=== PATIENT | female | born 1990 | race Caucasian/White ===

== ENCOUNTER 2021-05-16 19:14 | Emergency (ER) | payer OTHER ==
[~2021-05-16] VITALS: Ht 167.6 cm; Wt 96.0 kg
[2021-05-16 19:32] VITALS: BP 142/97
[2021-05-16] MEDS ORDERED: SULF1TAB48 MT (21:00)
[2021-05-16] MEDS ORDERED: CEPH250C2 MT (21:00)
[2021-05-16] MEDS ORDERED: CEPHALEXIN 250MG CAPSULE PO ONE (21:15)
[2021-05-16] MEDS ORDERED: IBUPROFEN 800MG TABLET PO ONE (21:15)
[2021-05-16] MEDS ORDERED: SULFAMETHOXAZOLE/TRIMETHOPRIM 800/160MG TABLET PO ONE (21:15)
== END 2021-05-16 21:50 | disposition home or self-care (01) ==
LOC: ER 19:47
DX: N76.0 Acute vaginitis (principal); L03.311 Cellulitis of abdominal wall; Z79.899 Other long term (current) drug therapy; Z98.890 Other specified postprocedural states
CPT/HCPCS: 81025; 99282; 99283

== ENCOUNTER 2022-02-19 16:24 | Observation (INO) | payer OTHER ==
[~2022-02-19] VITALS: Ht 167.6 cm; Wt 117.9 kg
[~2022-02-19 16:24] MED LIST: CEPH250C2 MT; SULF1TAB48 MT
[2022-02-19] MEDS ORDERED: OMEG-31 MT (18:34)
[2022-02-19] MEDS ORDERED: FOLI0.4T6 MT (18:34)
[2022-02-19] MEDS ORDERED: PREN1TAB78 MT (18:34)
[2022-02-19] MEDS ORDERED: FERR325T6 MT (18:34)
== END 2022-02-19 18:50 | disposition home or self-care (01) ==
LOC: 8 EST LDRP 16:24
PROVIDERS: ADMIT Obstetrics & Gynecology; ATTEND Obstetrics & Gynecology
DX: O26.853 Spotting complicating pregnancy, third trimester (principal); Z3A.36 36 weeks gestation of pregnancy
CPT/HCPCS: 76805; 76818; 99281; G0378; 59025

== ENCOUNTER 2022-03-11 08:30 | Inpatient (IN) | payer OTHER ==
[~2022-03-11] VITALS: Ht 167.6 cm; Wt 117.9 kg
[~2022-03-11 08:30] MED LIST changes: +FERR325T6 MT; +FOLI0.4T6 MT; +OMEG-31 MT; +PREN1TAB78 MT
[2022-03-11] MEDS ORDERED: DEXT 5%/LR + PITOCIN 20UNITS/L 1,000 ML IV SCH ×2 (09:30→17:00)
[2022-03-11] MEDS ORDERED: METHYLERGONOVINE MALEATE 0.2 MG/ML IM PRN (09:30)
[2022-03-11] MEDS: LACTATED RINGERS 1,000 ML IV SCH (09:45)
[2022-03-11 10:13] LABS: BASOPHILS % 0.2 % (0.0-2.0); EOSINOPHILS % 3.1 % (0.0-5.0); HEMATOCRIT. 38.1 % (36.0-48.0); HEMOGLOBIN. 13.4 g/dL (12.0-16.0); LYMPHOCYTES % 23.4 % (20.0-50.0); MEAN CORPUSCULAR HEMOGLOBIN 33.1 pg (28.0-32.0); MEAN CORPUSCULAR VOLUME 94.2 fL (81.0-99.0); MONOCYTES % 7.9 % (2.0-8.0); NEUTROPHILS % 65.4 % (40.0-76.0); PLATELET 186 x1000/uL (130-400); RED BLOOD CELL COUNT 4.04 mill/uL (4.2-5.4); RED CELL DISTRIBUTION WIDTH 13.7 % (11.6-14.6)
[2022-03-11 10:15] LABS: CLARITY URINE CLOUDY (CLEAR); COLOR URINE YELLOW (YELLOW); KETONES URINE NEGATIVE (NEGATIVE); LEUKOCYTE ESTERASE URINE 1+ (NEGATIVE); NITRITE URINE NEGATIVE (NEGATIVE); OCCULT BLOOD URINE NEGATIVE (NEGATIVE); PH URINE 7.5 (4.5-8.0); PROTEIN URINE TRACE (NEGATIVE); SPECIFIC GRAVITY URINE 1.017 (1.005-1.030); UROBILINOGEN URINE 0.2 E.U./dL (0.2-1.0)
[2022-03-11] MEDS ORDERED: CITRIC ACID/SODIUM CITRATE SOLN 30ML UDC PO SCH (10:15)
[2022-03-11 10:26] LABS: PARTIAL THROMBOPLASTIN TIME 29.5 sec (23.4-31.0); PROTHROMBIN TIME 10.3 sec (9.6-11.0)
[2022-03-11] MEDS ORDERED: CEFAZOLIN SODIUM 1000MG/VIAL ONE (10:30)
[2022-03-11] MEDS ORDERED: EPHEDRINE SULFATE 50MG/ML VIAL ONE (10:30)
[2022-03-11] MEDS ORDERED: OXYTOCIN 10 UNITS/ML 1ML ONE (10:31)
[2022-03-11] MEDS ORDERED: ONDANSETRON HCL 4MG/2ML INJ ONE (10:31)
[2022-03-11] MEDS ORDERED: DIPHENHYDRAMINE 50MG/ML VIAL ONE (10:31)
[2022-03-11] MEDS ORDERED: FENTANYL CITRATE/PF 50MCG/ML 2ML VIAL ONE (10:31)
[2022-03-11] MEDS ORDERED: MORPHINE SULFATE/PF 1MG/ML 10ML AMP ONE (10:32)
[2022-03-11 10:33] LABS: *AMPHETAMINES SCREEN URINE NEGATIVE (NEGATIVE); *BARBITURATES SCREEN URINE NEGATIVE (NEGATIVE); *BENZODIAZEPINES SCREEN URINE NEGATIVE (NEGATIVE); *COCAINE SCREEN URINE NEGATIVE (NEGATIVE); CANNABINOID URINE SCREEN NEGATIVE (NEGATIVE); METHADONE URINE SCREEN NEGATIVE (NEGATIVE); OPIATES URINE SCREEN NEGATIVE (NEGATIVE); PHENCYCLIDINE URINE SCREEN NEGATIVE (NEGATIVE)
[2022-03-11 12:24] LABS: HEPATITIS B SURFACE ANTIGEN NEGATIVE
[2022-03-11] MEDS ORDERED: CITRIC ACID/SODIUM CITRATE SOLN 30ML UDC PO NR (12:45)
[2022-03-11] MEDS ORDERED: KETOROLAC 60MG/2ML VIAL IM ONE (14:44)
[2022-03-11] MEDS ORDERED: NALOXONE HCL 0.4 MG/ML 1ML VIAL IV PRN (15:00)
[2022-03-11] MEDS ORDERED: BUTORPHANOL TARTRATE 2 MG/ML VIAL IV PRN (15:00)
[2022-03-11] MEDS ORDERED: DIPHENHYDRAMINE 50MG/ML VIAL IV PRN (15:00)
[2022-03-11] MEDS ORDERED: IBUPROFEN 400MG TABLET PO PRN (17:00)
[2022-03-11] MEDS ORDERED: ONDANSETRON HCL 4MG/2ML INJ IV PRN (17:00)
[2022-03-11] MEDS ORDERED: DIPHENHYDRAMINE 25MG CAPSULE PO PRN (17:00)
[2022-03-11] MEDS ORDERED: HEMORRHOIDAL SUPP PR PRN (17:00)
[2022-03-11] MEDS ORDERED: OXYCODONE HCL/ACETAMINOPHEN 5/325MG TABLET PO PRN (17:00)
[2022-03-11] MEDS ORDERED: LANOLIN OINT 7GM TUBE TOP PRN (17:00)
[2022-03-11] MEDS ORDERED: RHO(D) IMMUNE GLOBULIN 300 MCG/SYR IM PRN (17:00)
[2022-03-11] MEDS ORDERED: BISACODYL 10MG SUPP PR PRN (17:00)
[2022-03-11 18:00] VITALS: BP 114/60
[2022-03-11 18:20] VITALS: BP 119/58
[2022-03-11 19:30] VITALS: BP 118/65
[2022-03-11] MEDS: DOCUSATE SODIUM 100MG CAPSULE PO SCH (20:53)
[2022-03-11] MEDS: SIMETHICONE 80MG TABLET CHEW PO SCH (20:53)
[2022-03-11] MEDS: MAGNESIUM/ALUMINUM HYDROXIDE/SIMETHICONE 30ML UDC PO SCH (20:53)
[2022-03-11] MEDS: KETOROLAC 30MG/ML VIAL IM SCH (20:54)
[2022-03-12] VITALS: BP 99/57
[2022-03-12] MEDS: LACTATED RINGERS 1,000 ML IV SCH (00:25)
[2022-03-12] MEDS: KETOROLAC 30MG/ML VIAL IM SCH ×2 (03:11→09:46)
[2022-03-12 06:11] LABS: BASOPHILS % 0.3 % (0.0-2.0); EOSINOPHILS % 2.7 % (0.0-5.0); HEMATOCRIT. 34.2 % (36.0-48.0); HEMOGLOBIN. 11.8 g/dL (12.0-16.0); LYMPHOCYTES % 20.3 % (20.0-50.0); MEAN CORPUSCULAR HEMOGLOBIN 32.8 pg (28.0-32.0); MEAN CORPUSCULAR VOLUME 95.5 fL (81.0-99.0); MEAN PLATELET VOLUME 9.3 fl (7.4-10.4); MONOCYTES % 8.9 % (2.0-8.0); NEUTROPHILS % 67.8 % (40.0-76.0); PLATELET 151 x1000/uL (130-400); RED BLOOD CELL COUNT 3.58 mill/uL (4.2-5.4); RED CELL DISTRIBUTION WIDTH 13.6 % (11.6-14.6)
[2022-03-12 07:30] VITALS: BP 114/54
[2022-03-12] MEDS: PRENATAL VIT/FE FUMARATE/FA TABLET PO SCH (08:47)
[2022-03-12] MEDS: SIMETHICONE 80MG TABLET CHEW PO SCH ×4 (08:47→18:11)
[2022-03-12] MEDS: MAGNESIUM/ALUMINUM HYDROXIDE/SIMETHICONE 30ML UDC PO SCH ×4 (08:47→18:11)
[2022-03-12] MEDS: FERROUS SULFATE 325MG TABLET PO SCH ×4 (08:47→18:11)
[2022-03-12] MEDS ORDERED: KETOROLAC 30MG/ML VIAL IM SCH (09:31)
[2022-03-12 16:25] VITALS: BP 101/63
[2022-03-12] MEDS: IBUPROFEN 800MG TABLET PO PRN ×2 (18:17→23:28)
[2022-03-12] MEDS ORDERED: NALOXONE HCL 0.4MG/ML VIAL IV PRN (19:00)
[2022-03-12 20:00] VITALS: BP 122/70
[2022-03-12] MEDS: DOCUSATE SODIUM 100MG CAPSULE PO SCH (23:28)
[2022-03-13 04:00] VITALS: BP 116/72
[2022-03-13] MEDS: IBUPROFEN 800MG TABLET PO PRN ×2 (05:11→11:29)
[2022-03-13 08:00] VITALS: BP 119/64
[2022-03-13 11:29] VITALS: BP 119/64
[2022-03-13] MEDS: PRENATAL VIT/FE FUMARATE/FA TABLET PO SCH (11:29)
== END 2022-03-13 16:00 | disposition home or self-care (01) | DRG 540 ==
LOC: OBSVTOIN 08:30 → 8 EST LDRP 08:30 → 8EST 19:37
PROVIDERS: ADMIT Obstetrics & Gynecology; ATTEND Obstetrics & Gynecology
PROC: 10D00Z1 Extraction of Products of Conception, Low, Open Approach (ICD-10-PCS; principal; 2022-03-11)
DX: O34.211 Maternal care for low transverse scar from previous cesarean delivery (principal); O36.63X0 Maternal care for excessive fetal growth, third trimester, not applicable or unspecified; Z20.822 Contact with and (suspected) exposure to COVID-19; Z37.0 Single live birth; Z3A.39 39 weeks gestation of pregnancy
CPT/HCPCS: 36415; 80305; 81003; 85025; 86592; 86703; 86762; 86850; 86900; 87340; 87426; 88307; J0690; J1200; J1885; J2274; J2405; J2590; J3010; J3490; J7120

== ENCOUNTER 2024-01-04 09:49 | Emergency (ER) | payer OTHER ==
[~2024-01-04] VITALS: Ht 165.1 cm; Wt 102.1 kg
[2024-01-04 09:53] VITALS: TEMP 98.4; O2SAT 100
[2024-01-04] MEDS ORDERED: IBUP-2029 MT (11:21)
[2024-01-04 14:53] VITALS: BP 113/73; PULSE 62; RESP 18
== END 2024-01-04 14:54 | disposition home or self-care (01) ==
LOC: ER 09:49
DX: S80.02XA Contusion of left knee, initial encounter (principal); Z98.890 Other specified postprocedural states; Z79.899 Other long term (current) drug therapy; X58.XXXA Exposure to other specified factors, initial encounter; Y93.89 Activity, other specified; Y92.89 Other specified places as the place of occurrence of the external cause; Y99.8 Other external cause status
CPT/HCPCS: 73562; 99283